=== PATIENT | male | born 1945 | race Caucasian/White ===

== ENCOUNTER 2020-03-21 13:30 | Emergency (ER) | payer MEDICARE, SELFPAY ==
--- NOTE | ~2020-03-21 | XR_ITS ---
EXAMINATION: XR finger 4th LT min 2V EXAM DATE: 03/21/2020 14:38 INDICATION: Left 4th finger laceration. TECHNIQUE: Left 4th finger frontal, lateral and oblique projections obtained and reviewed. There is no prior study for comparison. FINDINGS: There is a bandage projecting over the left 3rd and 4th distal phalanges. There is small o ssific density overlying this bandaged and just medial to the 3rd middle phalangeal head, finding ind icated, of uncertain clinical significance. There are several small calcifications identified adjace nt to interphalangeal joints which are likely chronic. 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 IMPRESSION: No acute left hand osseous findings identified. 4th finger laceration. Reviewed, dictated and finalized at location A. IMPRESSION: No acute left hand osseous findings identified. 4th finger lacerat ion.
[2020-03-21 13:42] VITALS: BP 147/68; PULSE 87; RESP 18; TEMP 37.1; O2SAT 96
[2020-03-21] MEDS: TETANUS,DIPHTHERIA,AC PERTUSSIS ADULT 0.5 ML (ADACEL) IM (14:25)
--- NOTE | 2020-03-21 15:22 | ED.WOUNDLAC ---
HPI - Wound/Laceration General Chief Complaint: Wound/Laceration Stated Complaint: Cut finger Source: patient Mode of arrival: ambulatory Limitations: no limitations History of Present Illness HPI narrative: this is a 75-year-old male with some history of an injury to his left 4th finger while using a inseam trimmer caused an avulsion and flap injury to his 4th left finger, there is no bone exposed has good range of motion it is more painful was bleeding when he walked in, currently has good range of motion currently no bleeding and no numbness or tingling no exposed bone no fever or chills. Onset (ago): hour(s) Extremity Location: Left: hand ( Avulsion injury to his left 4th finger) Place: home and outdoors Patient tetanus UTD: No Context: accidental Associated symptoms: pain Related Data Allergies Allergy/AdvReac Type Severity Reaction Status Date / Time Penicillins Allergy Unknown Verified 03/21/20 14:17 Review of Systems Review of Systems: All systems reviewed & are unremarkable except as noted in HPI and below PMFSH Past Medical History Medical History Diabetes mellitus HTN (hypertension) Exam Const: General: no acute distress and alert Orientation/consciousness: patient oriented x3 HENMT: Head: normal to inspection Eyes: Conjunctivae: conjunctivae normal Pupils: Equal, round and reactive pupils present Neck: Neck: normal visual inspection and no lymphadenopathy Chest: Chest palpation & inspection: normal inspection of the chest Resp: Effort & Inspection: normal respiratory effort Auscultation: clear to auscultation bilaterally Cardio: Rate: regular rate Rhythm: regular rhythm GI: GI Palp: Yes Soft to palpation Skin: Other: An avulsion and flap injury to his left 4th finger pad Neuro: General: patient oriented x3 Extrem: General: normal to inspection Psych: Mental Status: mental status grossly normal Course Course Emergency Course: area was not amenable to sutures and was explained to patient that Dermabond would be a better solution so Dermabond was applied to the area appears approximated and advised patient that with his diabetes will start him on an antibiotic, and did receive at a cell his tetanus shot while he was here in the emergency department. Vital Signs Vital signs: Vital Signs Temperature 37.1 C 03/21/20 13:42 Pulse Rate 87 03/21/20 13:42 Respiratory Rate 18 03/21/20 13:42 Blood Pressure 147/68 H 03/21/20 13:42 Pulse Oximetry 96 03/21/20 13:42 Temperature 37.1 C 03/21/20 13:42 Pulse Rate 87 03/21/20 13:42 Respiratory Rate 18 03/21/20 13:42 Blood Pressure 147/68 H 03/21/20 13:42 Pulse Oximetry 96 03/21/20 13:42 Procedures Laceration Laceration 1: Date: 03/21/20 Time: 15:26 Site: hand ( Fourth left finger repair with Dermabond) Side (If applicable): left Size (cm): 1.5 Description: flap Pre-repair: wound explored ====== Skin Level ====== Skin layer closed with: dermabond ====== Subcutaneous Layer ====== ====== Muscle Layer ====== ====== Tendon Layer ====== Critical Care Time Critical Care Time Critical Care Time: No Discharge Plan Discharge Clinical Impression: Avulsion of skin, Laceration Patient Disposition: Home, Self-Care Condition: Stable Instructions: Antibiotic Form, Laceration (ED), Skin Avulsion (ED) Additional Instructions: take medicine as prescribed, follow-up primary care physician if symptoms persist or worsen. Prescriptions: New clindamycin HCl 300 mg capsule 300 mg PO Q6H Qty: 40 RF: 0 Follow-up/Referrals: Sheyla Franz [Other] Time of Disposition: 15:28
== END 2020-03-21 15:38 | disposition home or self-care (01) ==
PROVIDERS: Emergency Provider Emergency Medicine
DX: S61.215A Laceration without foreign body of left ring finger without damage to nail, initial encounter (principal); W45.8XXA Other foreign body or object entering through skin, initial encounter
CPT/HCPCS: 12001; 73140; 90471; 90715; 99283

== ENCOUNTER 2021-08-16 11:11 | Emergency (ER) | payer MEDICARE, SELFPAY ==
[2021-08-16 11:20] VITALS: BP 118/33; PULSE 67; RESP 20; TEMP 36.7; O2SAT 98
--- NOTE | 2021-08-16 11:21 | ED.URI ---
HPI - URI/Sore Throat General Stated Complaint: Congestion/Cough Time Seen by Provider: 08/16/21 11:21 Source: patient and RN notes reviewed History of Present Illness HPI Narrative: Patient is a 76-year-old male who presents the urgent care with complaints of cough and congestion since Monday. Patient also reports of a sore throat. Denies of any fever, nausea, vomiting. Patient does have past history of smoker and does have COPD currently does not require medications per patient. Patient has had the Covid vaccine as well as the Materna booster. Patient denies of any known exposures to strep or Covid however has been in contact with his grandkids. Patient has been taking Tylenol and aspirin for his symptoms. No other acute complaints. No acute distress noted. Patient aware of the plan of care. Some parts of this dictation were generated by voice recognition software and may contain typographical and/or grammatical inaccuracies. Related Data Home Medications Medication Instructions Recorded Confirmed glipizide 5 mg PO BID 08/16/21 08/16/21 hydrochlorothiazide 25 mg PO DAILY 08/16/21 08/16/21 insulin glargine [Lantus Solostar 12 unit SUBCUT DAILY 08/16/21 08/16/21 U-100 Insulin] losartan 100 mg PO DAILY 08/16/21 08/16/21 metformin 1,000 mg PO BID 08/16/21 08/16/21 simvastatin 40 mg PO DAILY 08/16/21 08/16/21 sitagliptin [Januvia] 50 mg PO DAILY 08/16/21 08/16/21 tiotropium bromide [Spiriva 2 puff INHALATION DAILY 08/16/21 08/16/21 Respimat] trazodone 50 mg PO DAILY 08/16/21 08/16/21 Allergies Allergy/AdvReac Type Severity Reaction Status Date / Time Penicillins Allergy Unknown Verified 08/16/21 11:20 Review of Systems Review of Systems: CONSTITUTIONAL: Denies fever, chills, or sweats. EYES: Denies visual changes, redness, or discharge. ENT: Reports of postnasal drainage and sore throat CARDIOVASCULAR: Denies chest pain, palpitations, or edema. RESPIRATORY: Reports a productive cough without dyspnea GASTROINTESTINAL: Denies abdominal pain, nausea, vomiting, or diarrhea. GENITOURINARY: Denies dysuria or hematuria. SKIN: Denies rash or itching. MUSCULOSKELETAL: Denies back pain, joint pain, or myalgia. NEUROLOGIC: Denies headache, numbness, or weakness. All other systems reviewed are negative, except as documented in HPI. [facility] Past Medical History Medical History (Updated 08/16/21 @ 11:45 by DEBBIE Rowe) Diabetes mellitus HTN (hypertension) Comments At the time of my signature, I reviewed and agree with the nursing past medical, surgical, social, and family history. There is no relevant family history pertinent to the patient complaint. Exam Narrative: GENERAL: This is a well-nourished, well-developed patient, in no apparent distress. HEAD: normocephalic, atraumatic. EYES: PERRL. Sclera clear/white. Vision is grossly intact. EARS: External ears normal, auditory canals clear and without drainage, TMs normal without perforation. Hearing grossly intact. NOSE: External nose normal with no obvious nasal discharge, mild bilateral erythemic nares with clear rhinorrhea THROAT: Mucous membranes moist, mild erythema of the posterior oropharynx with moderate postnasal drainage NECK: Neck supple, non-tender without lymphadenopathy CARDIOVASCULAR: Regular rate and rhythm without murmurs, gallops, or rubs. RESPIRATORY: Slight crackles throughout without wheezes. SKIN: warm, intact with no suspicious lesions or rash, good texture and turgor. NEURO: awake, alert, and oriented to person, place and time. There were no obvious focal neurologic abnormalities. EXTREMITIES: No clubbing, cyanosis, or edema. Course Vital Signs Vital signs: Vital Signs Temperature 98.1 F 08/16/21 11:20 Pulse Rate 67 08/16/21 11:20 Respiratory Rate 20 08/16/21 11:20 Blood Pressure 118/33 L 08/16/21 11:20 Pulse Oximetry 98 08/16/21 11:20 Temperature 98.1 F 08/16/21 11:20 Pulse Rate 67 08/16/21 11:20
--- NOTE | 2021-08-16 12:13 | PC.NURSE ---
1145 noted during stay pt reports he takes his b/p daily and it often runs low. denies dizziness/lightheadedness. states he will monitor/log and follow-up with primary as needed.
== END 2021-08-16 11:45 | disposition home or self-care (01) ==
PROVIDERS: Emergency Provider Nurse Practitioner Family
DX: J06.9 Acute upper respiratory infection, unspecified (principal); E11.9 Type 2 diabetes mellitus without complications; I10 Essential (primary) hypertension
CPT/HCPCS: 87081; 87880; 99213; G0463

== ENCOUNTER 2023-06-14 10:15 | Outpatient (RCR) | payer MEDICARE, SELFPAY ==
--- NOTE | 2023-03-27 15:37 | OTOPEVAL1 ---
Assessment and note entered by VERN Chester/Rosalie, CHT Evaluation Information Assessment Status Evaluation Diagnosis Unspecified sequelae of cerebral infarction Onset December 2022 Subjective Information Patient reports a decline in the use of his left hand following a CVA. 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 He reports he has been unable to do buttons, tie shoes, do zippers, and is unable to carry a coffee cup. He wears slip on shoes and clothing without small fasteners. He is right hand dominant. Assessment OT Clinical Summary Patient referred to outpatient OT with left hand deficits following CVA which has impacted his ability to complete ADL tasks such as buttons, ties, opening containers, and carrying objects. Skilled OT indicated for HEP instruction and progression, functional therapeutic exercises, coordination activities, and strengthening to facilitate optimal functional use of the left hand. Plan of Care Interventions Therapeutic Exercise,Manual Therapy,Neuro Re- education,Therapeutic Activities OT Services Indicated Yes Treatment Frequency and 1-2x/week for 4 weeks Duration These treatments will address the objective and functional deficits as defined above. The patient will be advanced safely and appropriately in order for the patient to progress towards his/her prior level of function. Additional exercises will be introduced and as well as a comprehensive home exercise program upon discharge, if needed, ?to ensure carryover of functional gains achieved in the clinic. This treatment plan has been reviewed and agreement upon by the patient.
--- NOTE | 2023-03-27 15:38 | OPREHPOC ---
Outpatient Therapy Plan of Care This is a Multidisciplinary Plan of Care that may contain components documented by all disciplines (PT, OT, and ST.) OT Problem 1 OT Problem #1 Knowledge Deficit OT Goal 1 Goal 1. Patient to be independent with instructed materials. Target Visit 8 OT Problem 2 OT Problem #2 Impaired Coordination OT Goal 1 Goal Patient to be able to complete the 9-hole peg test with the left hand in 60 seconds or less. Target Visit 8 OT Goal 2 Goal Patient to report improved functional use of the left hand with being able to do buttons, zippers, tie shoes, etc. Target Visit 8 OT Problem 3 OT Problem #3 Impaired Strength OT Goal 1 Goal 1. 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 Target Visit 8
--- NOTE | 2023-04-17 13:40 | STOPEVDC ---
Assessment and note entered by Maggie Alonso, VIDEO PRODUCTION INTERN Thank you for referring Ausitn Rios to [facility].? An evaluation has been completed. No further treatment is needed. Evaluation Information Assessment Status Evaluation Diagnosis Dysarthria Onset 01/11/23 Subjective Information Patient suffered CVA which was due to blood clots; subsequent surgery for removal. Initially, patient had some issues with left arm/leg and unintelligible speech however improvements were noted immediately after surgery with progress continuing since then. Upon discharge from [facility], he entered [facility] and then had home health services following that but not additional ST in the home. He has been attending OT here for approximately three weeks. Reported Pain Level Pain Score 0: Self Report Assessment ST Clinical Summary SPEECH EVALUATION This patient was seen for a Speech Evaluation after suffering blood clots and CVA on 01/11/23 resulting in admission to [facility] and surgery to remove the blood clots that day. He then entered [facility] ( [facility]) and then home health services, although he did not receive Speech Therapy services in the home. Today the reports concern that patient's left side lips is slightly asymmetrical to the right side of lips. She reports she realizes that patient is soft-spoken but states no more than normal for him. Today the patient presented with mild left sided facial asymmetry in the area of the lips but not other abnormalities in speech or oral motor movements is noted. Diadochokinetic rates were within normal limits for rate, rhythm, and sound precision. Vocal loudness was determined to be on the lower end of the normal range for loudness however reports no concern with his loudness, stating he has always been somewhat soft-spoken. As a result, patient was presented with labial exercises to address independently at home to further improve the range of the left side of lips and no further Speech Therapy is indicated. Thank you for this referral. Plan of Care ST Services Indicated No
--- NOTE | 2023-04-25 09:52 | OTOPPROG ---
Assessment and note entered by Joe Elizondo, VERN/Rosalie, CHT Evaluation Information Diagnosis Unspecified sequelae of cerebral infarction Onset December 2022 Subjective Information Patient and his report functional progress with the left hand stating that everyday tasks are easier for him. He states he doesn't wear clothes with buttons and zippers, so he cannot say whether this is easier for him or not. Measurements today show patient is improving with fine motor coordination, as measured by the 9-hole peg test. He is using better body mechanics with fine motor tasks. He continues to score as severely impaired with fine motor coordination, however. Assessment OT Clinical Summary Patient referred to outpatient OT with left hand deficits following CVA which has impacted his ability to complete ADL tasks such as buttons, ties, opening containers, and carrying objects. He is making progress toward functional goals and improved functional coordination of the left hand. He continues to have impairments that restrict functional use however. Continued skilled OT indicated for HEP instruction and progression, functional therapeutic exercises, coordination activities, and strengthening to facilitate optimal functional use of the left hand. Plan of Care Interventions Therapeutic Exercise,Manual Therapy,Neuro Re- education,Therapeutic Activities OT Services Indicated Yes Treatment Frequency and 2x/week for 4 weeks Duration These treatments will address the objective and functional deficits as defined above. The patient will be advanced safely and appropriately in order for the patient to progress towards his/her prior level of function. Additional exercises will be introduced and as well as a comprehensive home exercise program upon discharge, if needed, ?to ensure carryover of functional gains achieved in the clinic. This treatment plan has been reviewed and agreement upon by the patient.
--- NOTE | 2023-05-17 08:19 | OTOPPROG ---
Assessment and note entered by Joe Elizondo, VERN/Rosalie, CHT Evaluation Information Assessment Status Progress Diagnosis Unspecified sequelae of cerebral infarction Onset December 2022 Subjective Information Patient and his report functional progress with the left hand stating that everyday tasks are easier for him. Fine motor tasks are improving. He states he was able to don a belt the other day. Reports he tried to wear tennis shoes but was unable to tie them. Measurements today show patient is improving with fine motor coordination, as measured by the 9-hole peg test. He improved from 138 seconds to 71 seconds. He is using better body mechanics with fine motor tasks. Assessment OT Clinical Summary Patient referred to outpatient OT with left hand deficits following CVA which has impacted his ability to complete ADL tasks such as buttons, ties, opening containers, and carrying objects. He is making progress toward functional goals and improved functional coordination of the left hand. His fine motor coordination is now becoming more functional and we are now able to work on dressing tasks so that he can transition from wearing slip on clothes to jeans and button down shirts. Continued skilled OT indicated for HEP instruction and progression, functional therapeutic exercises , coordination activities, and strengthening to facilitate optimal functional use of the left hand . Plan of Care Interventions Therapeutic Exercise,Manual Therapy,Neuro Re- education,Therapeutic Activities OT Services Indicated Yes Treatment Frequency and 2x/week for 4 weeks Duration These treatments will address the objective and functional deficits as defined above. The patient will be advanced safely and appropriately in order for the patient to progress towards his/her prior level of function. Additional exercises will be introduced and as well as a comprehensive home exercise program upon discharge, if needed, ?to ensure carryover of functional gains achieved in the clinic. This treatment plan has been reviewed and agreement upon by the patient.
--- NOTE | 2023-05-17 08:19 | OPREHPOC ---
Outpatient Therapy Plan of Care This is a Multidisciplinary Plan of Care that may contain components documented by all disciplines (PT, OT, and ST.) OT Problem 1 OT Problem #1 Knowledge Deficit OT Goal 1 Goal 1. Patient to be independent with instructed materials. --OT POC UPDATE 04/25/23-- 1. Met, continue as HEP is progressed --OT POC UPDATE 05/17/23-- 1. Met, continue as HEP is progressed Target Visit 22 Progress Met OT Problem 2 OT Problem #2 Impaired Coordination OT Goal 1 Goal Patient to be able to complete the 9-hole peg test with the left hand in 60 seconds or less. --OT POC UPDATE 04/25/23-- progressing, continue --OT POC UPDATE 05/17/23-- Progressing, continue Target Visit 22 Progress Partially Met OT Problem 3 OT Problem #3 Impaired Strength OT Goal 1 Goal 1. 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 --OT POC UPDATE 04/25/23-- 1. Progressing, continue --OT POC UPDATE 05/17/23-- 1. No change in anglesmith strength Target Visit 22 Progress Partially Met
--- NOTE | 2023-06-12 09:18 | PCOTNOTE ---
Late note for 06/09: Patient canceled tx due to having a screw in his tire.
--- NOTE | 2023-06-14 10:57 | OTOPDC ---
Assessment and note entered by VERN Chester/Rosalie, CHT Evaluation Information Assessment Status Discharge Diagnosis Unspecified sequelae of cerebral infarction Onset December 2022 Subjective Information Patient reports that he's making progress and feeling like his hand is functioning better. He states he is doing better with buttons. He has a variety of fine motor coordination activities that he does daily at home. Measurements today show patient is improving with fine motor coordination, as measured by the 9-hole peg test. He improved from 71 seconds to 39 seconds. He is using better body mechanics with fine motor tasks. 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 Reported Pain Level Pain Score 0: Self Report Assessment OT Clinical Summary Patient referred to outpatient OT with left hand deficits following CVA which has impacted his ability to complete ADL tasks such as buttons, ties, opening containers, and carrying objects. He is making progress toward functional goals and improved functional coordination of the left hand. His fine motor coordination is now becoming more functional and he is using his hand for more dressing/buttoning tasks. His fine motor coordination is within functional limits and he has home exercises to continue to fine tune any residual deficit. Discharging today with patient independent with HEP. Plan of Care OT Services Indicated No
== END 2023-06-14 14:38 | disposition home or self-care (01) ==
LOC: ANHOT 10:15
DX: I69.392 Facial weakness following cerebral infarction (principal); I69.320 Aphasia following cerebral infarction; I69.322 Dysarthria following cerebral infarction
CPT/HCPCS: 36430; 92523; 97110; 97165; 97530

== ENCOUNTER 2024-03-27 10:00 | Outpatient (RCR) | payer MEDICARE, SELFPAY ==
[2023-12-18 11:52] LABS: Glucose Point of Care 103 mg/dl (65-105)
[2023-12-21 12:02] LABS: Glucose Point of Care 94 mg/dl (65-105)
[2024-01-01 11:16] LABS: Glucose Point of Care 104 mg/dl (65-105)
[2024-01-01 12:10] LABS: Glucose Point of Care 89 mg/dl (65-105)
[2024-01-03 12:02] LABS: Glucose Point of Care 111 mg/dl (65-105)
[2024-01-24 11:25] LABS: Glucose Point of Care 113 mg/dl (65-105)
[2024-02-01 11:56] LABS: Glucose Point of Care 73 mg/dl (65-105)
[2024-02-01 12:10] LABS: Glucose Point of Care 100 mg/dl (65-105)
[2024-02-08 11:51] LABS: Glucose Point of Care 113 mg/dl (65-105)
[2024-02-14 11:59] LABS: Glucose Point of Care 102 mg/dl (65-105)
== END 2024-04-01 07:10 | disposition home or self-care (01) ==
LOC: ANHCPREHAB 10:00
PROVIDERS: Visit Provider Nuclear Medicine Nuclear Cardiology
DX: Z95.2 Presence of prosthetic heart valve (principal)
CPT/HCPCS: 93798

== ENCOUNTER 2024-07-13 13:08 | Emergency (ER) | payer MEDICARE, SELFPAY ==
--- NOTE | ~2024-07-13 | XR_ITS ---
EXAMINATION: XR chest 2V 07/13/2024 13:51 INDICATION: Cough. COPD. Positive Covid tests. PROCEDURE: 2 view chest COMPARISON: No prior studies for comparison. FINDINGS: The lungs are clear. The cardiomediastinal silhouette is within normal limits. There are no pleural effusions. There is no pneumothorax suspected. 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 There are healed bilateral rib fractures. IMPRESSION: 1: NO ACUTE CARDIOPULMONARY DISEASE. Reviewed, dictated and finalized at location B.
[2024-07-13 13:16] VITALS: BP 112/43; PULSE 62; RESP 18; TEMP 36.6; O2SAT 98
--- NOTE | 2024-07-13 13:34 | ED.URI ---
HPI - URI/Sore Throat General Chief Complaint: Upper Respiratory Infection Stated Complaint: Cough Time Seen by Provider: 07/13/24 13:28 Source: patient, family, RN notes reviewed and old records reviewed Mode of arrival: ambulatory Limitations: no limitations History of Present Illness HPI Narrative: 79 year old male accompanied by with complaints of awakening today with increased cough and congestion. reports that patient had COVID and FLU shot on Monday and had no noted type of reaction from shots. reports that spouse awoke today with increase cough and congestion, does have history of COPD. tested spouse at home with 2 positive COVID tests noted. She states that she called his primary care doctor and was told that needed chest x-ray since history of COPD. reports that spouse has not had any fevers or complained of any body aches. MD elicited complaint: cough and other (congestion) Pertinent past history: pneumonia, COPD and other (CHF) Onset (ago): hour(s) (today) Severity: moderate Able to tolerate fluids by mouth: Yes Treatments prior to arrival: other (inhaler Mucinex) Related Data Home Medications Medication Instructions Recorded Confirmed Eliquis 07/13/24 Entresto 07/13/24 albuterol sulfate 90 mcg/actuation inhalation 07/13/24 aerosol inhaler berberine chloride 07/13/24 carvedilol 3.125 mg tablet mg 07/13/24 clopidogrel 75 mg tablet mg 07/13/24 escitalopram oxalate 5 mg tablet mg 07/13/24 furosemide 20 mg tablet mg 07/13/24 pantoprazole 40 mg tablet,delayed mg PO 07/13/24 release prednisone 10 mg tablet mg 07/13/24 spironolactone 25 mg tablet mg 07/13/24 Allergies Allergy/AdvReac Type Severity Reaction Status Date / Time Penicillins Allergy Unknown Verified 07/13/24 13:17 Review of Systems Review of Systems: CONSTITUTIONAL: Denies malaise, chills, sweats, or fever. EYES: Denies visual changes, redness, or discharge. ENT: Reports rhinorrhea, congestion, no sinus pain, no otalgia and no sore throat. CARDIOVASCULAR: Denies chest pain, palpitations, or edema. RESPIRATORY: Reports cough.? Denies acute dyspnea. GASTROINTESTINAL: Denies abdominal pain, nausea, vomiting, diarrhea SKIN: Denies rash or itching. MUSCULOSKELETAL: Denies myalgia. NEUROLOGIC: Denies headache. All systems reviewed & are unremarkable except as noted in HPI and below PMFSH Past Medical History Medical History (Updated 07/14/24 @ 08:00 by Serenity Amaya NP) Acute CVA (cerebrovascular accident) CHF (congestive heart failure), NYHA class II Cognitive impairment Diabetes mellitus History of transcatheter aortic valve replacement (TAVR) HTN (hypertension) Sleep apnea Family History Family History Sibling Diabetes type 2, controlled Malignant neoplasm of prostate CAD (coronary artery disease) Sibling Heart disease Father Malignant neoplasm of prostate Mother Heart attack Asthma Social History Social History Smoking packs per day: 2 Smoking cigarettes per day: 40.0 Years smoked: 64 Smoking pack-years: 128.00 Smoking status: Former smoker Tobacco type: cigarettes Second hand tobacco smoke exposure: No Smoking end date: 10/16/21 Additional smoking assessment comments: estimated packs/day Alcohol intake: former Substance use: never Spiritual care concerns: No Comments At time of signature, agree with nursing past medical, surgical, social and family history. There is no relevant family history pertinent to the presenting complaint Exam Narrative: GENERAL: Well-appearing, well-nourished, and in no acute distress. HEAD: Normocephalic EYES: PERRLA, conjunctivae clear ENT: Nares clear, turbinates edematous and erythematous, clear discharge. Mucous membranes moist. TM pearly cano with dull light reflex bila
== END 2024-07-13 14:24 | disposition home or self-care (01) ==
PROVIDERS: Emergency Provider Registered Nurse
DX: U07.1 COVID-19 (principal); J44.9 Chronic obstructive pulmonary disease, unspecified; Z87.891 Personal history of nicotine dependence; I11.0 Hypertensive heart disease with heart failure; I50.9 Heart failure, unspecified; E11.9 Type 2 diabetes mellitus without complications; Z86.73 Personal history of transient ischemic attack (TIA), and cerebral infarction without residual deficits; Z95.2 Presence of prosthetic heart valve
CPT/HCPCS: 71046; 99213; G0463